=== PATIENT | male | born 1970 | race Caucasian/White ===

== ENCOUNTER 2022-08-14 12:21 | Emergency (ER) | payer OTHER ==
[2022-08-14] MEDS ORDERED: TETANUS & DIPHTHERIA TOX,ADULT 0.5 ML VIAL ONE (12:53)
[2022-08-14] MEDS ORDERED: KETOROLAC 30 MG/ML INJ ONE (12:53)
--- NOTE | 2022-08-14 12:57 | RAD REPORT ---
EXAM DESCRIPTION: RAD - Hand Right 3 View - 08/14/2022 12:46 pm CLINICAL HISTORY: crush injury COMPARISON: No comparisons FINDINGS/IMPRESSION: No acute fracture. No malalignment. No significant focal degenerative changes. Retained foreign body at the level of the thumb proximal phalanx.
--- NOTE | 2022-08-14 13:03 | EDPHYS ---
Physician Documentation [facility] Name: Homero Carrasquillo Age: 52 yrs Sex: Male : 1970 Arrival Date: 08/14/2022 Time: 12:23 Bed 11 Private MD: Bill Baumann ED Physician Francisco Javier Alegria HPI: 08/14 12:31 This 52 yrs old Male presents to ER via Ambulatory with complaints of Crush Injury To jmm Hand. 12:31 The patient or guardian reports injury, pain. Onset: The symptoms/episode jmm began/occurred acutely, at 10:00. Modifying factors: The symptoms are alleviated by nothing, the symptoms are aggravated by nothing. This is a 52 year old male with a history of hlp, htn that presents to the ED with complaints of swelling and pain to his right hand. Patient states his hand was crushed. Denies other injury. . Historical: - Allergies: 12:25 No Known Allergies; aa5 - Home Meds: 12:25 Lisinopril Oral [Active]; Lipitor Oral [Active]; aa5 - PMHx: 12:25 Hypercholesterolemia; Hypertensive disorder; aa5 - Immunization history:: Adult Immunizations unknown. - Social history:: Smoking status: Patient reports the use of cigarette tobacco products, smokes one-half pack cigarettes per day. ROS: 12:31 Constitutional: Negative for fever, chills, and weight loss, Cardiovascular: Negative jmm for chest pain, palpitations, and edema, Respiratory: Negative for shortness of breath, cough, wheezing, and pleuritic chest pain. 12:31 MS/extremity: Positive for pain, swelling. 12:31 All other systems are negative. Exam: 12:31 Constitutional: This is a well developed, well nourished patient who is awake, alert, jmm and in no acute distress. Head/Face: atraumatic. Eyes: EOMI, no conjunctival erythema appreciated ENT: Moist Mucus Membranes Neck: Trachea midline, Supple Chest/axilla: Normal chest wall appearance and motion. Cardiovascular: Regular rate and rhythm. No edema appreciated Respiratory: Normal respirations, no respiratory distress appreciated Abdomen/GI: Non distended Back: Normal ROM 12:31 Musculoskeletal/extremity: swelling noted to the right hand, < 2 sec dist cap refill noted, full radial pulse, NVI. 12:31 Skin: abrasion noted to the dorsum of the right hand,. 12:31 Neuro: Orientation: is normal, Mentation: is normal, Memory: is normal. 12:31 Psych: Behavior/mood is pleasant, cooperative. Vital Signs: 12:26 BP 144 / 83; Pulse 82; Resp 18 S; Temp 98.0(TE); Pulse Ox 99% on R/A; Weight 90.72 kg aa5 (R); Height 5 ft. 10 in. (177.80 cm) (R); 12:26 Body Mass Index 28.70 (90.72 kg, 177.80 cm) aa5 MDM: 12:31 Patient medically screened. [facility] 13:02 Data reviewed: vital signs, nurses notes. Counseling: I had a detailed discussion with [facility] the patient and/or guardian regarding: the historical points, exam findings, and any diagnostic results supporting the discharge/admit diagnosis, the need for outpatient follow up, to return to the emergency department if symptoms worsen or persist or if there are any questions or concerns that arise at home. 13:02 Independent interpretation of the following test(s) in the Emergency Department X-Ray: [facility] My interpretation is No fracture appreciated. 13:02 Admission orders: after a detailed discussion of the patient's condition and case, the [facility] admit orders are written by me. ED course: Xray negative. Patient advised to follow up with pcp and otherwise given strict return precautions. patient understood and agrees with the plan of care. . 08/14 12:34 Order name: Hand Right 3 View XRAY; Complete Time: 13:02 [facility] Administered Medications: 12:54 Drug: Tetanus-Diphtheria Toxoid Adult 0.5 ml {Ase Certified Technician: [employer]. Exp: iw 11/14/2023. Lot #: [id number]. } Route: IM; Site: left deltoid; 12:55 Not Given (Patient Refused): Ketorolac 30 mg IM once iw Disposition: 14:37 Co-signature as Attending Physician, Francisco Javier Alegria MD I reviewed the patient's care rt provided by the Advanced Practice Provider and agree with the diagnosis and treatment plan. Disposition Summary: 08/14/22 13:03 Discharge Ordered Location: Home [facility] Condition: Stable [facility] Diagnosis - Contusion of right hand [facility] Followup: [facility] - With: Bill Baumann MD - When: 2 - 3 days - Reason: Recheck today's complaints, Continuance of care, Re-evaluation by your physician Discharge Instructions: - Discharge Summary Sheet [facility] - Hand Contusion [facility] Forms: - Medication Reconciliation Form [facility] - Thank You Letter cindi - Antibiotic Education cindi - Prescription Opioid Use [facility] Prescriptions: - Augmentin 875-125 mg Oral Tablet - take 1 tablet by ORAL route every 12 hours for 10 days; 20 tablet; Refills: 0, [facility] Product Selection Permitted Signatures: Dispatcher [employer] EDMS Kalin Pichardo PA PA jmm Williams, Irene, RN RN iw Ruma Funk RN RN aa5 Francisco Javier Alegria MD MD rt
--- NOTE | 2022-08-14 13:03 | ER ---
Nurse's Notes [facility] Name: Homero Carrasquillo Age: 52 yrs Sex: Male : 1970 Arrival Date: 08/14/2022 Time: 12:23 Bed 11 Private MD: Bill Baumann Diagnosis: Contusion of right hand Presentation: 08/14 12:26 Chief complaint: Patient states: "I was loading equipment and my hand got caught in aa5 between". pt c/o pain to right hand. Coronavirus screen: At this time, the client does not indicate any symptoms associated with coronavirus-19. Ebola Screen: Patient denies travel to an Ebola-affected area in the 21 days before illness onset. Initial Sepsis Screen: Does the patient meet any 2 criteria? No. Patient's initial sepsis screen is negative. Does the patient have a suspected source of infection? No. Patient's initial sepsis screen is negative. Risk Assessment: Do you want to hurt yourself or someone else? Patient reports no desire to harm self or others. Onset of symptoms was August 14, 2022. 12:26 Method Of Arrival: Ambulatory aa5 12:26 Acuity: SISI 4 aa5 Triage Assessment: 13:28 General: Appears in no apparent distress. Behavior is calm, cooperative. iw Historical: - Allergies: 12:25 No Known Allergies; aa5 - Home Meds: 12:25 Lisinopril Oral [Active]; Lipitor Oral [Active]; aa5 - PMHx: 12:25 Hypercholesterolemia; Hypertensive disorder; aa5 - Immunization history:: Adult Immunizations unknown. - Social history:: Smoking status: Patient reports the use of cigarette tobacco products, smokes one-half pack cigarettes per day. Screenin:27 [facility] ED Fall Risk Assessment (Adult) History of falling in the last 3 months, iw including since admission No falls in past 3 months (0 pts). Abuse screen: Denies threats or abuse. Denies injuries from another. Nutritional screening: No deficits noted. Tuberculosis screening: No symptoms or risk factors identified. Vital Signs: 12:26 BP 144 / 83; Pulse 82; Resp 18 S; Temp 98.0(TE); Pulse Ox 99% on R/A; Weight 90.72 kg aa5 (R); Height 5 ft. 10 in. (177.80 cm) (R); 12:26 Body Mass Index 28.70 (90.72 kg, 177.80 cm) aa5 ED Course: 12:23 Patient arrived in ED. as 12:23 Bill Baumann MD is Private Physician. as 12:25 Arm band placed on Patient placed in an exam room, on a stretcher. aa5 12:27 Triage completed. aa5 12:31 Kalin Pichardo PA is PHCP. jmm 12:31 Francisco Javier Alegria MD is Attending Physician. jmm 12:48 Hand Right 3 View XRAY In Process Unspecified. EDMS 12:54 Sherie Luis, RN is Primary Nurse. iw 13:03 Bill Baumann MD is Referral Physician. [facility] 13:27 No provider procedures requiring assistance completed. Patient did not have IV access iw during this emergency room visit. 13:28 Patient has correct armband on for positive identification. iw Administered Medications: 12:54 Drug: Tetanus-Diphtheria Toxoid Adult 0.5 ml {Social Psychologist: [facility]. Exp: iw 11/14/2023. Lot #: [id number]. } Route: IM; Site: left deltoid; 12:55 Not Given (Patient Refused): Ketorolac 30 mg IM once iw Medication: 13:28 Vaccine Information Statement (VIS) provided today. Questions and/or concerns iw addressed. VIS edition date: January 30, 2021. Outcome: 13:03 Discharge ordered by . [facility] 13:28 Discharged to home ambulatory. iw 13:28 Condition: good 13:28 Discharge instructions given to patient, Instructed on discharge instructions, follow up and referral plans. Demonstrated understanding of instructions, follow-up care, medications, Prescriptions given X 1. 13:28 Patient left the ED. iw Signatures: Dispatcher [employer] EDMS Kalin Pichardo PA PA jmm Martinez, Amelia as Sherie Luis, RN RN iw Ruma Funk RN RN aa5
[2022-08-14 13:34] VITALS: BP 144/83; TEMP 98; O2SAT 99
== END 2022-08-14 13:28 | disposition home or self-care (01) ==
LOC: ER 12:21
DX: S60.221A Contusion of right hand, initial encounter (principal); I10 Essential (primary) hypertension; E78.00 Pure hypercholesterolemia, unspecified; Z23 Encounter for immunization
CPT/HCPCS: 90471; 90714; 99283

== ENCOUNTER 2023-03-29 20:16 | Emergency (ER) | payer OTHER ==
[2023-03-29 21:07] LABS: Absolute Lymphocytes (CBC) 2.3 K/uL (0.7-4.9); Hematocrit 40.6 % (39.6-49.0); Lymphocytes % 24.4 % (15.3-44.8); MCV 92.9 fL (80-100); MPV 9.6 fL (7.6-11.3); Platelets 243 thou/uL (152-406); RBC Red Blood Cell Count 4.37 M/uL (4.33-5.43)
[2023-03-29 21:09] LABS: Specific Gravity 1.012 (1.005-1.030); Urine Bacteria None Seen /HPF (<20); Urine Bilirubin NEGATIVE (Negative); Urine Blood Negative (Negative); Urine Clarity Clear (Clear); Urine Color Colorless (Yellow); Urine Crystals Unidentified Few /HPF (None Seen); Urine Glucose NEGATIVE (Negative); Urine Protein NEGATIVE (Negative); Urine RBC <5 /HPF (None Seen); Urine Urobilinogen Normal (Normal)
[2023-03-29] MEDS ORDERED: NA CHLORIDE 0.9% 1,000 ML ONE (21:16)
[2023-03-29] MEDS ORDERED: KETOROLAC 30 MG/ML INJ ONE (21:16)
--- NOTE | 2023-03-29 21:24 | RAD REPORT ---
EXAM DESCRIPTION: CT - Abdomen Pelvis Wo Contrast - 03/29/2023 9:14 pm CLINICAL HISTORY: Abdominal pain. ABD PAIN COMPARISON: No comparisons TECHNIQUE: CT imaging of the abdomen and pelvis was performed without contrast. Solid organ, bowel a nd vascular assessment is limited due to lack of IV and oral contrast. All CT scans are performed using dose optimization technique as appropriate and may include automated exposure control or mA/KV adjustment according to patient size. FINDINGS: The lower lung gudino are clear. The liver, spleen, pancreas, adrenal glands and kidneys are within normal limits for a limited non-co ntrast examination. No bowel obstruction, free air, free fluid or abscess. There is moderate stool throughout the colon. There is descending in sigmoid diverticulosis coli present without diverticulitis. The appendix is no rmal. The osseous structures are within normal limits. IMPRESSION: No acute intra-abdominal or pelvic findings. Descending and sigmoid diverticulosis coli. No finding to suggest diverticulitis. A limited non-contrast examination was performed as detailed.
[2023-03-29 21:31] LABS: Bilirubin Total 0.2 mg/dL (0.2-1.0); Potassium 3.7 mEq/L (3.5-5.1); Protein, Total 7.1 g/dL (6.4-8.2)
--- NOTE | 2023-03-29 21:49 | ER ---
Nurse's Notes [facility] Name: Homero Carrasquillo Age: 52 yrs Sex: Male : 1970 Arrival Date: 03/29/2023 Time: 20:16 Bed 5 Private MD: Diagnosis: UTI, right flank pain Presentation: 03/29 20:27 Chief complaint: Patient states: RUQ swelling,onset today with right side lower back pf1 pain of 7,onset 1 month. Patient stated followed up with Dr. Baumann approximately 1 month ago for back pain, had chest X-ray that was negative, yesterday had a urine test done and it was positive for WBC with a trace of blood,started Bactrim today. Coronavirus screen: Vaccine status: Patient reports receiving the 2nd dose of the covid vaccine. [employer] Client denies travel out of the [place] in the last 14 days. At this time, the client does not indicate any symptoms associated with coronavirus-19. Ebola Screen: Patient negative for fever greater than or equal to 101.5 degrees Fahrenheit, and additional compatible Ebola Virus Disease symptoms. Initial Sepsis Screen: Does the patient meet any 2 criteria? HR > 90 bpm. No. Patient's initial sepsis screen is negative. Does the patient have a suspected source of infection? No. Patient's initial sepsis screen is negative. Risk Assessment: Do you want to hurt yourself or someone else? Patient reports no desire to harm self or others. 20:27 Method Of Arrival: Ambulatory pf1 20:27 Acuity: SISI 3 pf1 21:05 Onset of symptoms was March 29, 2023. rv Historical: - Allergies: 20:32 No Known Allergies; pf1 - PMHx: 20:32 Hypercholesterolemia; Hypertensive disorder; pf1 - PSHx: 20:32 right knee repair; back surgery; jaw surgery; pf1 - Immunization history:: Adult Immunizations up to date, Client reports receiving the 2nd dose of the Covid vaccine, Last tetanus immunization: < 5 years ago Flu vaccine is not up to date. - Social history:: Smoking status: Patient reports the use of cigarette tobacco products, smokes one-half pack cigarettes per day, Patient uses alcohol, occasionally. Patient/guardian denies using street drugs. Screenin:03 [facility] ED Fall Risk Assessment (Adult) History of falling in the last 3 months, rv including since admission No falls in past 3 months (0 pts) Score/Fall Risk Level 0 - 2 = Low Risk Oriented to surroundings, Maintained a safe environment, Educated pt \T\ family on fall prevention, incl call for assistance when getting out of bed, Assessed \T\ reinforced patient's understanding of fall precautions, Provided non-skid footwear, Hourly rounding (assess needs \T\ fall precautionary measures) done, Used ambulatory aids as needed (educated on \T\ assisted with), Used gait belt as appropriate. Abuse screen: Denies threats or abuse. Denies injuries from another. Nutritional screening: No deficits noted. Tuberculosis screening: No symptoms or risk factors identified. Assessment: 21:03 General: Appears comfortable, Behavior is calm, cooperative. Pain: Complains of pain in rv right upper quadrant. Neuro: Level of Consciousness is awake, alert, obeys commands, Oriented to person, place, time, situation. Cardiovascular: Capillary refill < 3 seconds Patient's skin is warm and dry. Respiratory: Airway is patent Respiratory effort is even, unlabored. GI: Reports lower abdominal pain, Patient currently denies diarrhea, nausea, vomiting. Vital Signs: 20:27 BP 167 / 86; Pulse 91; Resp 16; Temp 98.9; Pulse Ox 100% on R/A; Weight 91.63 kg; pf1 Height 5 ft. 10 in. ; Pain 7/10; 21:55 BP 138 / 79; Pulse 70; Resp 17; Temp 98; Pulse Ox 100% on R/A; rv 20:27 Body Mass Index 28.98 (91.63 kg, 177.8 cm) pf1 20:27 Pain Scale: Adult pf1 ED Course: 20:22 Patient arrived in ED. gm2 20:25 Yelena Bates MD is Attending Physician. sp3 20:32 Triage completed. pf1 20:37 Simba Davis, ARELI is Primary Nurse. bp 21:03 Patient has correct armband on for positive identification. Client placed on continuous rv cardiac and pulse oximetry monitoring. NIBP monitoring applied. 21:05 Arm band placed on right wrist. rv 21:05 No provider procedures requiring assistance completed. Inserted saline lock: 20 gauge rv in right forearm, using aseptic technique. Blood collected. 21:16 CT Abd/Pelvis - Without Contrast In Process Unspecified. EDMS 21:55 IV discontinued, intact, bleeding controlled, No redness/swelling at site. Pressure rv dressing applied. Administered Medications: 21:00 Drug: NS 0.9% IV 1000 ml IV at 1 bolus Per protocol; 1000 mL bolus Route: IV; Rate: 1 bp bolus; Site: right antecubital; 21:55 Follow up: IV Status: Completed infusion; IV Intake: 1000ml rv 21:00 Drug: TORadol - Ketorolac IVP 15 mg IVP once Route: IVP; Site: right antecubital; bp 21:55 Follow up: Response: No adverse reaction rv Medication: 21:03 VIS not applicable for this client. rv Intake: 21:55 IV: 1000ml; Total: 1000ml. rv Outcome: 21:47 Discharge ordered by . sp3 21:55 Discharged to home ambulatory, rv 21:55 Condition: improved 21:55 Discharge instructions given to patient, Instructed on discharge instructions, follow up and referral plans. Demonstrated understanding of instructions, follow-up care, 21:56 Patient left the ED. rv Signatures: Dispatcher [employer] EDMS Simba Davis, RN RN Stanton Santana RN RN rv Yelena Bates MD MD sp3 Lexi Leal RN RN pf1 [place] 2
--- NOTE | 2023-03-29 21:49 | EDPHYS ---
Physician Documentation [facility] Name: Homero Carrasquillo Age: 52 yrs Sex: Male : 1970 Arrival Date: 03/29/2023 Time: 20:16 Bed 5 Private MD: ED Physician Yelena Bates HPI: 03/29 21:02 This 52 yrs old Male presents to ER via Ambulatory with complaints of RT SIDE PAIN sp3 UNDER RIBS. 21:02 52-year-old male with history of hyperlipidemia, hypertension as he is Dr. Baumann who sp3 has been seeing him for approximately 3 to 4 weeks for right-sided pain and mild dysuria who was diagnosed with a urinary tract infection yesterday and started on Bactrim now presents to the ED today for flank pain radiating around to the right side into the right lower quadrant. He is concerned about kidney stone as was his doctor. He denies any gross hematuria currently, fever, left-sided abdominal pain, nausea, vomiting, diarrhea, chest pain, shortness of breath, trauma, or any other signs or symptoms on ROS at this time. No prior kidney stones reported.. Historical: - Allergies: 20:32 No Known Allergies; pf1 - PMHx: 20:32 Hypercholesterolemia; Hypertensive disorder; pf1 - PSHx: 20:32 right knee repair; back surgery; jaw surgery; pf1 - Immunization history:: Adult Immunizations up to date, Client reports receiving the 2nd dose of the Covid vaccine, Last tetanus immunization: < 5 years ago Flu vaccine is not up to date. - Social history:: Smoking status: Patient reports the use of cigarette tobacco products, smokes one-half pack cigarettes per day, Patient uses alcohol, occasionally. Patient/guardian denies using street drugs. ROS: 21:03 Constitutional: Negative for fever, chills, and weight loss, Eyes: Negative for injury, sp3 pain, redness, and discharge, ENT: Negative for injury, pain, and discharge, Neck: Negative for injury, pain, and swelling, Cardiovascular: Negative for chest pain, palpitations, and edema, Respiratory: Negative for shortness of breath, cough, wheezing, and pleuritic chest pain, : Negative for injury, bleeding, discharge, and swelling, Skin: Negative for injury, rash, and discoloration, Neuro: Negative for headache, weakness, numbness, tingling, and seizure, Psych: Negative for depression, anxiety, suicide ideation, homicidal ideation, and hallucinations, Allergy/Immunology: Negative for hives, rash, and allergies, Endocrine: Negative for neck swelling, polydipsia, polyuria, polyphagia, and marked weight changes, Hematologic/Lymphatic: Negative for swollen nodes, abnormal bleeding, and unusual bruising, 21:03 All other systems are negative, Exam: 21:03 Constitutional: This is a well developed, well nourished patient who is awake, alert, sp3 and in no acute distress. Head/Face: Normocephalic, atraumatic. Eyes: Pupils equal round and reactive to light, extra-ocular motions intact. Lids and lashes normal. Conjunctiva and sclera are non-icteric and not injected. Cornea within normal limits. Periorbital areas with no swelling, redness, or edema. Neck: Trachea midline, no thyromegaly or masses palpated, and no cervical lymphadenopathy. Supple, full range of motion without nuchal rigidity, or vertebral point tenderness. No Meningismus. Chest/axilla: Normal chest wall appearance and motion. Nontender with no deformity. No lesions are appreciated. Cardiovascular: Regular rate and rhythm with a normal S1 and S2. No gallops, murmurs, or rubs. Normal PMI, no JVD. No pulse deficits. Respiratory: Lungs have equal breath sounds bilaterally, clear to auscultation and percussion. No rales, rhonchi or wheezes noted. No increased work of breathing, no retractions or nasal flaring. Skin: Warm, dry with normal turgor. Normal color with no rashes, no lesions, and no evidence of cellulitis. MS/ Extremity: Pulses equal, no cyanosis. Neurovascular intact. Full, normal range of motion. Neuro: Awake and alert, GCS 15, oriented to person, place, time, and situation. Cranial nerves II-XII grossly intact. Motor strength 5/5 in all extremities. Sensory grossly intact. Cerebellar exam normal. Normal gait. Psych: Awake, alert, with orientation to person, place and time. Behavior, mood, and affect are within normal limits. 21:03 Abdomen/GI: Right CVA tenderness noted with mild pain to the right lower quadrant. No peritoneal signs, rebound or guarding noted. Abdominal exam is nonsurgical in nature. Patient is ambulatory in no acute distress., Vital Signs: 20:27 BP 167 / 86; Pulse 91; Resp 16; Temp 98.9; Pulse Ox 100% on R/A; Weight 91.63 kg; pf1 Height 5 ft. 10 in. ; Pain 7/10; 21:55 BP 138 / 79; Pulse 70; Resp 17; Temp 98; Pulse Ox 100% on R/A; rv 20:27 Body Mass Index 28.98 (91.63 kg, 177.8 cm) pf1 20:27 Pain Scale: Adult pf1 MDM: 20:42 Patient medically screened. sp3 21:04 Data reviewed: vital signs, nurses notes, lab test result(s), radiologic studies. ED sp3 course: 52-year-old male with recently diagnosed UTI yesterday and now right-sided flank pain radiating around to the right lower quadrant. Differential diagnosis includes UTI/high tract disease, pyelonephritis, kidney stone, combination of the after mentioned, among others. I am less concerned about intestinal pathology including ileus or obstruction or ischemia, vascular etiology including aortic aneurysm or dissection, sepsis, shock, or any other critical pathology at this time. Work-up will include laboratory values, urine analysis, CT scan of the abdomen pelvis noncontrast and ketorolac IV for symptomatic control. Disposition will be based on work-up and patient course with probable discharge with further intervention as indicated.. 21:46 ED course: CT demonstrates no significant abnormality and no kidney stone or other sp3 inflammatory process. Laboratory values are also within normal limits. Urinalysis does demonstrate some leukocyte esterase however no white cells are noted. Patient is already started antibiotics we will continue these. He can follow back up with Dr. Baumann. A copy of his CT scan is also been given to him.. 03/29 20:49 Order name: CBC with Diff; Complete Time: 21:35 sp3 03/29 20:49 Order name: CMP; Complete Time: 21:35 sp3 03/29 20:49 Order name: Lipase; Complete Time: 21:35 sp3 03/29 20:49 Order name: Urinalysis w/ reflexes; Complete Time: 21:35 sp3 03/29 20:49 Order name: CT Abd/Pelvis - Without Contrast; Complete Time: 21:35 sp3 03/29 20:49 Order name: IV Saline Lock; Complete Time: 21:18 sp3 03/29 20:49 Order name: Labs collected and sent; Complete Time: 21:18 sp3 Administered Medications: 21:00 Drug: NS 0.9% IV 1000 ml IV at 1 bolus Per protocol; 1000 mL bolus Route: IV; Rate: 1 bp bolus; Site: right antecubital; 21:55 Follow up: IV Status: Completed infusion; IV Intake: 1000ml rv 21:00 Drug: TORadol - Ketorolac IVP 15 mg IVP once Route: IVP; Site: right antecubital; bp 21:55 Follow up: Response: No adverse reaction rv Disposition Summary: 03/29/23 21:47 Discharge Ordered Notes: Location: Home sp3 Condition: Stable sp3 Diagnosis - UTI, right flank pain sp3 Followup: sp3 - With: Private Physician - When: Upon discharge from the Emergency Department - Reason: Continuance of care Discharge Instructions: - Discharge Summary Sheet sp3 - Urinary Tract Infection, Adult sp3 Forms: - Medication Reconciliation Form sp3 - Thank You Letter sp3 - Antibiotic Education sp3 - Prescription Opioid Use sp3 - Patient Portal Instructions sp3 - Leadership Thank You Letter sp3 Signatures: Dispatcher [employer] Simba Joiner, RN RN Yelena Voss MD MD sp3 Lexi Leal RN RN pf1 Stanton Car RN rv
[2023-03-29 22:01] VITALS: O2SAT 100
[2023-03-29 22:02] VITALS: BP 138/79; TEMP 98
== END 2023-03-29 21:56 | disposition home or self-care (01) ==
LOC: ER 20:16
DX: N39.0 Urinary tract infection, site not specified (principal); I10 Essential (primary) hypertension; F17.210 Nicotine dependence, cigarettes, uncomplicated
CPT/HCPCS: 96361; 85025; 81001; 36415; 83690; 80053; 74176; 96374; 99284; J7030

== ENCOUNTER 2025-02-10 12:47 | Emergency (ER) | payer OTHER ==
--- NOTE | 2025-02-10 13:46 | RAD REPORT ---
EXAMINATION: ONE VIEW CHEST XR CLINICAL INDICATION: shoulder pain, left;Chest pain TECHNIQUE: Frontal chest projection is submitted. Examination is limited by patient positioning and t echnique. COMPARISON: 01/07/23. FINDINGS: The lungs are well inflated and clear. The heart is normal in size. No displaced fractures identified . IMPRESSION: No acute intrathoracic abnormalities.
--- NOTE | 2025-02-10 14:03 | RAD REPORT ---
EXAMINATION: C Spine Wo Con CLINICAL INDICATION: Male, 54 years old. NUMBNESS/TINGLING TECHNIQUE: Axial CT images through the cervical spine were obtained without intravenous contrast. Sag ittal and coronal reformatted images were created from the data set. One or more of the following dose reduction techniques were used: Automated exposure control, adjustment of the mA and/or kV accor ding to patient size, and/or iterative reconstruction. Unless otherwise specified, incidental findings do not require dedicated imaging follow-up. [id number]. COMPARISON: No prior exams FINDINGS: ALIGNMENT: The cervical spine has normal alignment without scoliosis or spondylolisthesis. BONE: Vertebral body heights are maintained. No aggressive osseous lesions. DEGENERATIVE: Multilevel cervical spondylosis with evidence of bilateral neural foraminal narrowing. No high grade central spinal stenosis. SOFT TISSUE: No significant abnormalities in the soft tissue of the neck. The visualized lung apices are clear. IMPRESSION: No acute cervical spine abnormalities.
--- NOTE | 2025-02-10 14:04 | RAD REPORT ---
EXAMINATION: UPPER EXTREMITY VENOUS UNILATE CLINICAL INDICATION: Male, 54 years old.Pain;Numbness/tingling TECHNIQUE: Multiplanar grayscale and color Doppler images were obtained in a upper extremity venous ultrasound. Spectral analysis of the Doppler waveforms were performed. COMPARISON: No prior exams FINDINGS: The internal jugular vein, subclavian vein, axillary vein, basilic vein, brachial vein, cephalic vein , radial vein, and ulnar vein were evaluated and patent. The brachial vein, cephalic vein, radial vein, and ulnar veins were compressible and patent. IMPRESSION: No evidence of deep venous thrombosis in the left upper extremity.
[2025-02-10 14:29] LABS: Absolute Lymphocytes (CBC) 2.0 K/uL (0.7-4.9); Hematocrit 42.4 % (39.6-49.0); Hemoglobin 14.5 g/dL (13.6-17.9); MCH 31.2 pg (27.0-35.0); MCHC 34.3 g/dL (32.0-36.0); MCV 91.1 fL (80-100); MPV 9.6 fL (7.6-11.3); Nucleated RBC Absolute Count 0.0 (0-0); Nucleated Red Blood Cells % 0.1 % (0-0); RBC Red Blood Cell Count 4.66 M/uL (4.33-5.43); White Blood Count 8.40 thou/uL (4.3-10.9)
[2025-02-10 14:43] LABS: PT Prothrombin Time 11.6 SECONDS (10-13.0); Protime INR 1.03
[2025-02-10 15:01] LABS: ALT/SGPT 28 U/L (16-61); AST/SGOT 18 U/L (15-37); Albumin 4.0 g/dL (3.4-5.0); Albumin/Globulin Ratio 1.3 (1.1-1.8); Alkaline Phosphatase 78 U/L (45-117); Anion Gap 9.6 mEq/L (5.0-15.0); BUN Blood Urea Nitrogen 15 mg/dL (7-18); Globulin 3.0 g/dL (2.3-3.5); Glucose Level 99 mg/dL (74-106); Magnesium 2.1 mg/dL (1.6-2.4); NT PRO-BNP 51 pg/mL (<125); Potassium 3.6 mEq/L (3.5-5.1); Thyroid Stimulating Hormone 1.030 uIU/mL (0.358-3.740); Troponin High Sensitivity 4.2 pg/mL (<58.9)
[2025-02-10 15:07] LABS: Bilirubin Indirect, Calculated 0.0 mg/dL (0.2-0.8)
--- NOTE | 2025-02-10 15:40 | ER ---
Nurse's Notes [facility] Name: Homero Carrasquillo Age: 54 yrs Sex: Male : 1970 Arrival Date: 02/10/2025 Time: 12:47 Bed 6 Private MD: Diagnosis: Cervical disc disorder with radiculopathy Presentation: 02/10 13:10 Chief complaint: Patient states: stiffness in neck, shoulder and down into L arm that iw has been ongoing. Also c/o numbness to L 1st-3rd fingers x weeks. Coronavirus screen: Client denies travel out of the [place] in the last 14 days. Ebola Screen: Patient denies exposure to infectious person. Patient denies travel to an Ebola-affected area in the 21 days before illness onset. Initial Sepsis Screen: Does the patient meet any 2 criteria? No. Patient's initial sepsis screen is negative. Does the patient have a suspected source of infection? No. Patient's initial sepsis screen is negative. Risk Assessment: Do you want to hurt yourself or someone else? Patient reports no desire to harm self or others. Onset of symptoms is unknown. 13:10 Method Of Arrival: Ambulatory iw 13:10 Acuity: SISI 3 iw Historical: - Allergies: 13:12 No Known Allergies; iw - PMHx: 13:12 Hypercholesterolemia; Hypertensive disorder; iw - PSHx: 13:12 back surgery; jaw surgery; right knee repair; iw - Immunization history:: Adult Immunizations. - Infectious Disease History:: Denies. - Social history:: Smoking status: Patient reports the use of cigarette tobacco products, smokes one-half pack cigarettes per day. Screenin:29 [facility] ED Fall Risk Assessment (Adult) History of falling in the last 3 months, jl7 including since admission No falls in past 3 months (0 pts) Confusion or Disorientation No (0 pts) Intoxicated or Sedated No (0 pts) Impaired Gait No (0 pts) Mobility Assist Device Used No (0 pt) Altered Elimination No (0 pt) Score/Fall Risk Level 0 - 2 = Low Risk Oriented to surroundings, Maintained a safe environment. Abuse screen: Denies threats or abuse. Denies injuries from another. Nutritional screening: No deficits noted. Tuberculosis screening: No symptoms or risk factors identified. Assessment: 14:29 General: Appears in no apparent distress. uncomfortable, Behavior is calm, cooperative, jl7 appropriate for age. Pain: Complains of pain in left hand Pain radiates to posterior cervical area, left trapezius and right trapezius Pain currently is 7 out of 10 on a pain scale. Neuro: Sneed Agitation-Sedation Scale (RASS): 0 - Alert and Calm Level of Consciousness is awake, alert, obeys commands, Oriented to person, place, time, situation. Cardiovascular: Patient's skin is warm and dry. Respiratory: Airway is patent Respiratory effort is even, unlabored, Respiratory pattern is regular, symmetrical. Derm: Skin is pink, warm \T\ dry. 15:30 Reassessment: Patient appears in no apparent distress at this time. No changes from jl7 previously documented assessment. Patient and/or family updated on plan of care and expected duration. Pain level reassessed. Patient is alert, oriented x 3, equal unlabored respirations, skin warm/dry/pink. Vital Signs: 13:10 BP 134 / 86; Pulse 86; Resp 16; Temp 97.8(TE); Pulse Ox 100% on R/A; Weight 88 kg; iw Height 5 ft. 10 in. ; Pain 6/10; 14:43 BP 132 / 85; Pulse 63; Resp 15; Pulse Ox 98% ; jl7 15:44 BP 114 / 72; Pulse 65; Resp 16; Pulse Ox 100% on R/A; Pain 0/10; iw 13:10 Body Mass Index 27.84 (88.00 kg, 177.8 cm) iw 13:10 Pain Scale: Adult iw 15:44 Pain Scale: Adult iw ED Course: 12:50 Patient arrived in ED. ts1 12:56 Aide Kirby PA-C is PHCP. sb4 12:56 Jl Casarez MD is Attending Physician. sb4 13:12 Triage completed. iw 13:12 Arm band placed on right wrist. iw 13:40 XRAY Chest (1 view) In Process Unspecified. EDMS 13:43 C Spine W/O Contrast In Process Unspecified. EDMS 14:00 UPPER EXTREMITY VENOUS UNILATE In Process Unspecified. EDMS 14:06 Joyce James, RN is Primary Nurse. jl7 14:29 Patient has correct armband on for positive identification. Provided Education on: use jl7 of call luna. 14:29 Initial lab(s) drawn, by me, sent to lab. EKG done, by ED staff, reviewed by Aide Kirby PA-C. Inserted saline lock: 20 gauge in right forearm, using aseptic technique. Blood collected. Flushed with 10 mL NS. 15:39 Reyes Swan MD is Referral Physician. sb4 15:44 No provider procedures requiring assistance completed. IV discontinued, intact, iw bleeding controlled, No redness/swelling at site. Pressure dressing applied. Administered Medications: No medications were administered Medication: 14:29 VIS not applicable for this client. jl7 Outcome: 15:39 Discharge ordered by . sb4 15:47 Discharged to home ambulatory, jl7 15:47 Condition: stable 15:47 Discharge instructions given to patient, Instructed on discharge instructions, follow up and referral plans. Demonstrated understanding of instructions, follow-up care, 15:48 Patient left the ED. [place] Signatures: Dispatcher [employer] EDSherie Escamilla RN RN iw Leal, Jahala, RN RN jl7 Brown, Sophia, Mary Tillman PA-C, PAS PAS ts1
--- NOTE | 2025-02-10 15:40 | EDPHYS ---
Physician Documentation [facility] Name: Homero Carrasquillo Age: 54 yrs Sex: Male : 1970 Arrival Date: 02/10/2025 Time: 12:47 Bed 6 Private MD: ED Physician Jl Casarez HPI: 02/10 14:17 This 54 yrs old Male presents to ER via Ambulatory with complaints of Shoulder Pain, sb4 Numbness Of Hand. 14:17 Patient reports left-sided neck pain with associated numbness/tingling in his left 1st sb4 through 3rd fingers. He denies any acute injury to his neck or shoulder, but states that they have been doing renovations on the house. This has been going on for a few weeks now, he came in today because he noticed that his blood pressure was elevated as well. Additionally, his states that he has had unintentional weight loss and has been more fatigued than usual. Historical: - Allergies: 13:12 No Known Allergies; iw - PMHx: 13:12 Hypercholesterolemia; Hypertensive disorder; iw - PSHx: 13:12 back surgery; jaw surgery; right knee repair; iw - Immunization history:: Adult Immunizations. - Infectious Disease History:: Denies. - Social history:: Smoking status: Patient reports the use of cigarette tobacco products, smokes one-half pack cigarettes per day. ROS: 14:21 Constitutional: Negative for fever, chills, and weight loss, sb4 14:21 Neck: Positive for stiffness, 14:21 MS/extremity: Positive for paresthesias, of the left hand, 14:21 All other systems are negative, Exam: 14:21 Constitutional: This is a well developed, well nourished patient who is awake, alert, sb4 and in no acute distress. Head/Face: Normocephalic, atraumatic. Eyes: Extra-ocular motions intact. Periorbital areas with no swelling, redness, or edema. ENT: Mucous membranes moist. Cardiovascular: Regular rate and rhythm with a normal S1 and S2. Respiratory: No increased work of breathing, no retractions or nasal flaring. Abdomen/GI: Soft, non-tender, no distension. Skin: Warm, dry with normal turgor. Normal color with no rashes, no lesions, and no evidence of cellulitis. MS/ Extremity: Pulses equal, no cyanosis. Neurovascular intact. Full, normal range of motion. Neuro: Awake and alert, GCS 15, oriented to person, place, time, and situation. Motor strength 5/5 in all extremities. Sensory grossly intact. Vital Signs: 13:10 BP 134 / 86; Pulse 86; Resp 16; Temp 97.8(TE); Pulse Ox 100% on R/A; Weight 88 kg; iw Height 5 ft. 10 in. ; Pain 6/10; 14:43 BP 132 / 85; Pulse 63; Resp 15; Pulse Ox 98% ; jl7 15:44 BP 114 / 72; Pulse 65; Resp 16; Pulse Ox 100% on R/A; Pain 0/10; iw 13:10 Body Mass Index 27.84 (88.00 kg, 177.8 cm) iw 13:10 Pain Scale: Adult iw 15:44 Pain Scale: Adult iw MDM: 12:56 Medical Screening Exam initiated sb4 14:22 Differential diagnosis: DJD, tendonitis, Neuropathy, electrolyte abnormality, pinched sb4 nerve, cervical radiculopathy, DVT. Care significantly affected by the following chronic conditions: Hypertension. 15:38 Data reviewed: vital signs, nurses notes, lab test result(s), EKG, radiologic studies, sb4 and as a result, I will discharge patient. Counseling: I had a detailed discussion with the patient and/or guardian regarding the historical points, exam findings, and any diagnostic results supporting the discharge/admit diagnosis, lab results, radiology results, the need for outpatient follow up, a neurosurgeon, to return to the emergency department if symptoms worsen or persist or if there are any questions or concerns that arise at home. 02/10 13:26 Order name: Basic Metabolic Panel; Complete Time: 15:07 sb4 02/10 13:26 Order name: CBC with Diff; Complete Time: 14:30 sb4 02/10 13:26 Order name: LFT's; Complete Time: 15:07 sb4 02/10 13:26 Order name: Magnesium; Complete Time: 15:07 sb4 02/10 13:26 Order name: NT PRO-BNP; Complete Time: 15:07 sb4 02/10 13:26 Order name: PT-INR; Complete Time: 14:48 sb4 02/10 13:26 Order name: Troponin HS; Complete Time: 15:07 sb4 02/10 13:26 Order name: TSH; Complete Time: 15:07 sb4 02/10 13:26 Order name: XRAY Chest (1 view); Complete Time: 13:53 sb4 02/10 13:26 Order name: C Spine W/O Contrast; Complete Time: 14:03 sb4 02/10 14:00 Order name: UPPER EXTREMITY VENOUS UNILATE; Complete Time: 14:05 EDMS 02/10 13:26 Order name: Cardiac monitoring; Complete Time: 14:28 sb4 02/10 13:26 Order name: EKG - Nurse/Tech; Complete Time: 14:28 sb4 02/10 13:26 Order name: IV Saline Lock; Complete Time: 14:28 sb4 02/10 13:26 Order name: Labs collected and sent; Complete Time: 14:28 sb4 02/10 13:26 Order name: O2 Per Protocol; Complete Time: 14:28 sb4 02/10 13:26 Order name: O2 Sat Monitoring; Complete Time: 14:28 sb4 EC:23 Rate is 64 beats/min. Rhythm is regular, Normal Sinus Rhythm. DC interval is normal at sb4 178 msec. QRS interval is normal at 82 msec. QT interval is normal at 390 msec. No Q waves. T waves are Normal. No ST changes noted. Clinical impression: Normal ECG. Interpreted by me. Reviewed by me. Administered Medications: No medications were administered Disposition: 17:00 Co-signature as Attending Physician, Jl Casarez MD I reviewed the patient's care rn provided by the Advanced Practice Provider and agree with the diagnosis and treatment plan. Disposition Summary: 02/10/25 15:39 Discharge Ordered Notes: Location: Home sb4 Problem: an ongoing problem sb4 Symptoms: are unchanged sb4 Condition: Stable sb4 Diagnosis - Cervical disc disorder with radiculopathy sb4 Followup: sb4 - With: Reyes Swan MD - When: As needed - Reason: Recheck today's complaints, Re-evaluation by your physician Discharge Instructions: - Discharge Summary Sheet sb4 - Cervical Radiculopathy, [id number] sb4 Forms: - Patient Portal Instructions sb4 - Leadership Thank You Letter sb4 Signatures: Dispatcher [employer] Sherie Whaley RN RN iw Nieto, Roman, MD MD rn Leal, Jahala, RN RN jl7 Aide Kirby, PA-C PA-C sb4 Corrections: (The following items were deleted from the chart) 13: 13:26 BASIC METABOLIC PANEL+C.LAB.BRZ ordered. EDMS EDMS 13: 13:26 CBC+H.LAB.BRZ ordered. EDMS EDMS 13: 13:26 HEPATIC FUNCTION+C.LAB.BRZ ordered. EDMS EDMS 13: 13:26 MAGNESIUM+C.LAB.BRZ ordered. EDMS EDMS 13: 13:26 PROBNP+C.LAB.BRZ ordered. EDMS EDMS 13: 13: PROTIME (+INR)+COAG.LAB.BRZ ordered. EDMS EDMS 13: 13:26 Troponin High Sensitivity+C.LAB.BRZ ordered. EDMS EDMS 13: 13:26 THYROID STIMULAT HORMONE+C.LAB.BRZ ordered. EDMS EDMS 13: 13:26 Chest Single View+RAD.RAD.BRZ ordered. EDMS EDMS 13: 13:27 C Spine Wo Con+CT.RAD.BRZ ordered. EDMS EDMS 13: 13:27 Extremity Venous Uni Ltd+US.RAD.BRZ ordered. EDMS EDMS
[2025-02-10 20:07] VITALS: TEMP 97.8
[2025-02-10 20:10] VITALS: BP 114/72; O2SAT 100
== END 2025-02-10 15:48 | disposition home or self-care (01) ==
LOC: ER 12:47
DX: M50.10 Cervical disc disorder with radiculopathy, unspecified cervical region (principal); I10 Essential (primary) hypertension; F17.210 Nicotine dependence, cigarettes, uncomplicated
CPT/HCPCS: 36415; 71045; 72125; 80048; 80076; 83735; 83880; 84443; 84484; 85025; 85610; 93005; 93971; 99284